=== PATIENT | female | born 1965 | race Caucasian/White ===

== ENCOUNTER → 2021-02-20 | Outpatient (CLI) | payer BC ==
--- NOTE | 2021-02-22 11:22 | MM ---
Reason for exam: screening (asymptomatic). Last mammogram was performed 1 year and 3 months ago. History: Patient is postmenopausal. Family history of breast cancer in mother at age 80 and breast cancer in 2 aunts. Silicone gel implants in both breasts, 2011. Saline implants in both breasts, 2007. Physical Findings: A clinical breast exam by your physician is recommended on an annual basis and results should be correlated with mammographic findings. MG Screening Mammo Implant/CAD Bilateral CC, MLO, and ID view(s) were taken. Prior study comparison: December 02, 2019, mammogram, performed at [facility]. July 28, 2018, mammogram, performed at [facility]. July 15, 2017, mammogram, performed at [facility]. Finding: There are stable, fine, segmental calcifications in the left breast. Bilateral breast prothesis. No significant changes in finding since December 02, 2019, July 28, 2018, and July 15, 2017. ASSESSMENT: Benign, BI-RAD 2 RECOMMENDATION: Routine screening mammogram of both breasts in 1 year.
== END | disposition home or self-care (01) ==
LOC: RADMAMWWP 16:25
PROVIDERS: ATTEND Obstetrics & Gynecology
DX: Z12.31 Encounter for screening mammogram for malignant neoplasm of breast (principal); Z80.3 Family history of malignant neoplasm of breast; Z78.0 Asymptomatic menopausal state
CPT/HCPCS: 77067

== ENCOUNTER → 2022-02-21 | Outpatient (CLI) | payer BC ==
--- NOTE | 2022-02-22 07:48 | MM ---
Reason for Exam: Screening (asymptomatic). Last screening mammogram was performed 12 month(s) ago. Patient History: Menarche at age 11. First Full-Term at age 28. Postmenopausal. Patient has history of breast feeding. 2010, Bilateral Implants. 2007, Bilateral Implants. Maternal aunt had breast cancer. Maternal aunt had breast cancer. Mother had breast cancer, age 80. Risk Values: Daria 5 year model risk: 2.5%. NCI Lifetime model risk: 14.9%. Prior Study Comparison: 07/28/2018 Screening Mammogram, [facility]. 12/02/2019 Screening Mammogram, [facility]. 02/20/2021 Bilateral Screening Mammogram, [facility]. Tissue Density: The breast tissue is heterogeneously dense. This may lower the sensitivity of mammography. Findings: Analyzed By CAD. Bilateral subpectoral breast implants are redemonstrated. Stable group of benign-appearing small round calcifications in the left breast. There is no suspicious new group of microcalcifications or new suspicious mass in either breast. Overall Assessment: Benign, BI-RAD 2 Management: Screening Mammogram of both breasts in 1 year. A clinical breast exam by your physician is recommended on an annual basis and results should be correlated with mammographic findings. Electronically signed and approved by: Maurilio Giraldo M.D.
== END | disposition home or self-care (01) ==
LOC: RADMAMWWP 06:58
PROVIDERS: ATTEND Obstetrics & Gynecology
DX: Z12.31 Encounter for screening mammogram for malignant neoplasm of breast (principal); Z78.0 Asymptomatic menopausal state; Z80.3 Family history of malignant neoplasm of breast; Z98.890 Other specified postprocedural states
CPT/HCPCS: 77063; 77067

== ENCOUNTER → 2022-08-16 | Day surgery (SDC) | payer BC ==
[2022-08-14 10:05] VITALS: BMI 18.6
[~2022-08-16] MED LIST: DEXAMETHASONE SOD PHOSPHATE 4 MG/ML 1 ML VIAL IV ONE; DEXAMETHASONE SOD PHOSPHATE 4 MG/ML 1 ML VIAL ONE; HYDROmorphone 0.5 MG/0.5 ML SYRINGE IVP PRN; LACTATED RINGERS 1,000 ML IV SCH; LIDOCAINE 1% (10MG/ML) FOR IV START INTRADERMA PRN; LIDOCAINE 2% INJ 20 MG/ML (2 ML VIAL) ONE; MIDAZOLAM 2 MG/2 ML VIAL IV PRN; ONDANSETRON 4 MG/2 ML VIAL IVP ONE; PHENYLEPHRINE-0.9% NACL SYG 1,000 MCG/10 ML SYRINGE ONE; PROPOFOL 10 MG/ML 20 ML VIAL IV ONE; ROPIVACAINE 5 MG/ML 30 ML VIAL ONE; ceFAZolin 1,000 MG in SODIUM CHLORIDE 0.9% 1,000 ML IRRIGATION ONE
[2022-08-16 09:23] VITALS: RESP 16
--- NOTE | 2022-08-16 09:53 | P.ANPRN ---
Procedure Note - Anesthesia - Nerve Block Performed Left Popliteal Single Time Out Performed: Yes ([id number]) Date of Procedure: 08/16/22 Procedure Start Time: :44 Procedure Stop Time: :50 Location of Patient: PreOp Indication: Acute Post-Operative Pain, Dx/Pain Location (lef foot pain), Requested by Surgeon Sedation Type: Sedate with meaningful contact maintained Preparation: Sterile Prep Position: Supine Catheter: None Needle Types: Pajunk Needle Gauge: 21 Ultrasound used to visualize needle placement: Yes Ultrasound used to observe medication spread: Yes Injectate: 0.5% Ropivacaine (see comment for volume) (4 mg of dexamethasone) Blood Aspirated: No Pain Paresthesia on Injection Noted: No Resistance on Injection: Normal Image Stored and Saved: Yes Events: Uneventful and Well Tolerated
--- NOTE | 2022-08-16 11:14 | P.OP ---
Date of Procedure: 08/16/22 Preoperative Diagnosis: Hallux valgus left foot Postoperative Diagnosis: Same Procedure(s) Performed: Bunionectomy with first metatarsal osteotomy left foot Implants: novastep Central Lock bunion correction device Anesthesia: ALEXAA Surgeon: Aristeo Moya Estimated Blood Loss (ml): 1 Pathology: none sent Condition: stable Disposition: PACU Description of Procedure: Prior to the patient being brought to the operative room, anesthesia administered a nerve block on the left lower extremity. Then the patient was brought into the operating room and placed on table in the supine position. Timeout was taken to confirm correct patient identifiers, correct laterality of surgery, and correct procedure. When all staff in the room were in agreement with the timeout, the patient was induced and placed under general anesthesia. A tourniquet was placed on the ankle of the surgical side. The surgical foot was then prepped and draped in usual manner. The foot was exsanguinated and the tourniquet inflated to 250 mmHg. Attention was directed over the medial aspect of the first metatarsal head, where a linear incision was made between the neurovascular structures. The incision was deepened down to the subcutaneous tissue careful to identify, avoid, and retract any neurovascular structures and cauterize any bleeding vessels. Blunt dissection was then carried down to level of the first metatarsal phalangeal joint capsule. A linear capsular incision was made over the first metatarsal phalangeal joint and then the soft tissue was reflected dorsally and plantarly to expose the medial side of the first metatarsal head. Under direct fluoroscopic visualization, the medial eminence was resected perpendicular to the long access of the second metatarsal. The cut guide was then placed on the resected area of bone, and then the osteotomy was performed just proximal to the cut guide through the neck of the first metatarsal. The blade was oriented perpendicular to the long access and perpendicular to the second metatarsal shaft. Once the osteotomy was completed the shifting lever was then inserted into the medullary canal and then used to shift the capital fragment until the intermetatarsal angle was corrected. A guidewire was then placed through the shifting device down into the medullary canal area and the wire was oriented parallel to the long axis of the first metatarsal and along the medial cortex. The sizer was then placed over the wire to determine the appropriate amount of correction. It was determined that a step to device was adequate. The reamer was placed over the wire and reamed to proper depth. The intramedullary correction plant was attached to the insertion device. It was then placed over the guidewire and impacted down to proper depth. The capital fragment was then adjusted until the distal portion of the implant was flat against the resected surface of bone. Temporary fixation was then inserted through the device to lock the correction in place. 2 locking screws then placed through the the implant and into the first metatarsal head. Drilling was done under direct fluoroscopic visualization so that it did not penetrate the lateral cortex. Once both screws were in position the correction device and intramedullary wire were removed, and then the jig attached to the implant for compression, rotational correction and placement of locking screws. Once that was attached, the capital fragment was rotated in the frontal plane under direct fluoroscopic visualization until the frontal plane correction was achieved. Once achieved the guidewires placed in the jig locking it into the first metat arsal in a correct position. Drill sleeves were place the jig for the placement locking screws. Small stab incisions were made in the skin and bluntly dissected until the drill guide was able to sit flat against the bone. Countersinking was then performed and then drilling performed bicortically. Locking screws were placed until the threaded portions of the screw on the head engaged the medial cortex of the first metatarsal. Final fluoroscopic imaging showed full correction intermetatarsal angle as well as correction of the frontal plane deformity the first metatarsal head. However the sesamoids were still laterally displaced, so the decision was made to perform a lateral release. A small stab incision was made through the skin on the lateral side of the first metatarsal phalangeal joint. Blunt dissection was through the soft tissue along the lateral side of the first metatarsal phalangeal joint capsule. A scalpel was inserted and a lateral capsulotomy performed. The blade was rotated in the sesamoid suspensory ligament was resected. The great toe was forced into varus to release the soft tissue adhesions. As allow the sesamoid apparatus to be more in anatomic alignment with the first metatarsal head. One additional locking screw was then placed through the implant distally and the first metatarsal head. Again drilling was done under fluoroscopic visualization so that the lateral cortex wasn't penetrated. The last locking screw was then placed. Or scopic imaging showed maintain correction of the capital fragment with proper placement of all hardware. Combination of a Chi and rasper used to resect the shelf of bone where the implant was inserted. Once completed there is thoroughly irrigated with antibiotic saline. The capsules closed with 0 Vicryl. Subcu closure done with 4-0 Monocryl. And skin closure done with 4-0 Stratafix in a running subcuticular manner. All incisions were closed with 4-0 Monocryl. Dermal glue was placed over the incisions associated with bunion surgery. Then Steri-Strips are placed over the same incisions. An Arthrex jumpstart dressing was applied over the all incisions and then a dry sterile dressings applied to left foot. The tourniquet was released and capillary refill return to all digits on the left foot. The patient was then placed in a well-padded, well molded plaster posterior mold/sugar tong splint. The tourniquet was released and capillary refill return to all digits of the foot. The patient tolerated above procedure and anesthesia well. Patient left the operating room to recovery with vital signs stable
[2022-08-16 11:16] VITALS: TEMP 97.8
[2022-08-16 12:13] VITALS: BP 126/77; PULSE 74
== END | disposition home or self-care (01) ==
LOC: OR 08:53
PROVIDERS: ATTEND Podiatrist
DX: M20.12 Hallux valgus (acquired), left foot (principal); G89.18 Other acute postprocedural pain; Z98.890 Other specified postprocedural states
CPT/HCPCS: 64445; 28299; C1713; J2250; J1100; J0690 ×2; J2405; J2795; J2370; J2704; J2001

== ENCOUNTER → 2023-03-05 | Outpatient (CLI) | payer BC ==
--- NOTE | 2023-03-06 10:52 | MM ---
Reason for Exam: Hx of breast augmentation, asymptomatic. Last mammogram was performed 1 year(s) and 1 month(s) ago. Patient History: Menarche at age 11. First Full-Term at age 28. Postmenopausal. Patient has history of breast feeding. 2010, Bilateral Implants. 2007, Bilateral Implants. Maternal aunt had breast cancer. Maternal aunt had breast cancer. Mother had breast cancer, age 80. Mother tested for BRCA2 outcome was negative. Risk Values: Daria 5 year model risk: 2.6%. NCI Lifetime model risk: 14.6%. Prior Study Comparison: 07/15/2017 Screening Mammogram, [facility]. 07/28/2018 Screening Mammogram, [facility]. 12/02/2019 Screening Mammogram, [facility]. 02/20/2021 Bilateral Screening Mammogram, [facility]. 02/21/2022 Bilateral MG 3D screen mammo imp/cad., [facility]. Tissue Density: There are scattered fibroglandular densities. Findings: Analyzed By CAD. There is no suspicious group of microcalcifications or new suspicious mass in either breast. Bilateral implants are intact. Overall Assessment: Benign, BI-RAD 2 Management: Screening Mammogram of both breasts in 1 year. . Patient should continue monthly self-breast exams. A clinical breast exam by your physician is recommended on an annual basis. This exam should not preclude additional follow-up of suspicious palpable abnormalities. Note on Daria scores and lifetime risk: 1. A Daria score greater than 3% is considered moderate risk. If this is the case, consider specialist referral to assess eligibility for a risk reducing agent. 2. If overall lifetime risk for the development of breast cancer is 20% or higher, the patient may qualify for future screening with alternating mammogram and breast MRI. Electronically signed and approved by: Jeffery Edwards M.D. Radiologis
== END | disposition home or self-care (01) ==
LOC: RADMAMWWP 06:48
PROVIDERS: ATTEND Obstetrics & Gynecology
DX: Z12.31 Encounter for screening mammogram for malignant neoplasm of breast (principal); Z78.0 Asymptomatic menopausal state; Z80.3 Family history of malignant neoplasm of breast; Z98.82 Breast implant status
CPT/HCPCS: 77063; 77067

== ENCOUNTER → 2024-03-09 | Outpatient (CLI) | payer BC ==
--- NOTE | 2024-03-09 08:46 | MM ---
Reason for Exam: Hx of breast augmentation, asymptomatic. Last screening mammogram was performed 12 month(s) ago. Patient History: Menarche at age 11. First Full-Term at age 28. Postmenopausal. Patient has history of breast feeding. 2010, Bilateral Implants. 2007, Bilateral Implants. Maternal aunt had breast cancer. Maternal aunt had breast cancer. Mother had breast cancer, age 80. Mother tested for BRCA2 outcome was negative. Risk Values: Daria 5 year model risk: 2.7%. NCI Lifetime model risk: 14.2%. Prior Study Comparison: 07/15/2017 Screening Mammogram, [facility]. 07/28/2018 Screening Mammogram, [facility]. 12/02/2019 Screening Mammogram, [facility]. 02/20/2021 Bilateral Screening Mammogram, [facility]. 02/21/2022 Bilateral MG 3D screen mammo imp/cad., [facility]. 03/05/2023 Bilateral MG 3D screen mammo imp/cad., [facility]. Tissue Density: There are scattered areas of fibroglandular density. Findings: Analyzed By CAD. Right breast: There is no suspicious group of microcalcifications or new suspicious mass. Left breast: There is no suspicious group of microcalcifications or new suspicious mass. Overall Assessment: Negative, BI-RAD 1 Management: Screening Mammogram of both breasts in [address] [facility] will attempt to contact patient to return for supplemental views and ultrasound if indicated. Patient should continue monthly self-breast exams. A clinical breast exam by your physician is recommended on an annual basis. This exam should not preclude additional follow-up of suspicious palpable abnormalities. Note on Daria scores and lifetime risk: 1. A Daria score greater than 3% is considered moderate risk. If this is the case, consider specialist referral to assess eligibility for a risk reducing agent. 2. If overall lifetime risk for the development of breast cancer is 20% or higher, the patient may qualify for future screening with alternating mammogram and breast MRI. [facility], , 03/09/2024 8:44 AM. Electronically signed and approved by: Denis Jiménez DO
== END | disposition home or self-care (01) ==
LOC: RADMAMWWP 07:00
PROVIDERS: ATTEND Family Medicine
DX: Z80.3 Family history of malignant neoplasm of breast
CPT/HCPCS: 77063; 77067